=== PATIENT | female | born 1985 | race Caucasian/White ===

== ENCOUNTER 2019-11-02 11:05 | Outpatient (CLI) | payer OTHER | END 2019-11-02 11:56 | disposition home or self-care (01) | LOC: LDOP 11:05 | PROVIDERS: ATTEND Obstetrics & Gynecology | DX: O32.1XX0 Maternal care for breech presentation, not applicable or unspecified (principal); O24.913 Unspecified diabetes mellitus in pregnancy, third trimester; Z3A.37 37 weeks gestation of pregnancy | CPT/HCPCS: 59025 ==

== ENCOUNTER 2019-11-06 05:35 | Inpatient (IN) | payer OTHER ==
[~2019-11-06] VITALS: Ht 165.1 cm; Wt 83.6 kg
[2019-11-06] MEDS ORDERED: NEWBORN KIT ONE (05:46)
[2019-11-06 05:51] VITALS: BP 117/73
[2019-11-06] MEDS ORDERED: LEVO175T5 PO (05:53)
[2019-11-06] MEDS ORDERED: INSU100V14 SQ (05:55)
[2019-11-06] MEDS: METOCLOPRAMIDE 5 MG/ML, 2ML IV ONE ×2 (06:00→16:00)
[2019-11-06] MEDS ORDERED: ASPI-515 PO (06:00)
[2019-11-06] MEDS ORDERED: PREN1TAB62 PO (06:00)
[2019-11-06] MEDS ORDERED: LACTATED RINGERS 1,000 ML IVBOLUS ONE (06:00)
[2019-11-06] MEDS ORDERED: SODIUM CITRATE/CITRIC ACID 30 ML UDC PO ONE (06:00)
[2019-11-06] MEDS ORDERED: METOCLOPRAMIDE 5 MG/ML, 2ML ONE ×2 (06:07→07:51)
[2019-11-06] MEDS ORDERED: OXYTOCIN 30U/ 0.9% NaCL 500ML 500 ML ONE (06:08)
[2019-11-06 06:20] LABS: BASOPHILS # (AUTO) 0.06 x10^3/uL (0-0.1); BASOPHILS % (AUTO) 1 % (0-1); EOSINOPHILS % (AUTO) 4 % (1-7); LYMPHOCYTES # (AUTO) 1.73 x10^3/uL (1-3.4); LYMPHOCYTES % (AUTO) 17 % (22-44); MD NO; MEAN CORPUSCULAR HEMOGLOBIN 28.9 pg (27.0-34.8); MEAN CORPUSCULAR VOLUME 90.3 fL (80-100); MEAN PLATELET VOLUME 8.1 fL (7.4-10.4); MONOCYTES # (AUTO) 0.92 x10^3/uL (0.2-0.8); MONOCYTES % (AUTO) 9 % (2-9); NEUTROPHILS # (AUTO) 6.88 x10^3/uL (1.8-6.8); NEUTROPHILS % (AUTO) 69 % (42-75); PLATELET COUNT 296 x10^3/uL (130-400); RED BLOOD COUNT 4.35 x10^6/uL (3.82-5.3); RED CELL DISTRIBUTION WIDTH 13.2 % (9.6-15.2)
[2019-11-06] MEDS: INSULIN LISPRO 100 UNITS/ML, PEN SQ-INSULIN SCH ×4 (06:22→20:16)
[2019-11-06] MEDS: LACTATED RINGERS 1,000 ML IV SCH ×8 (06:44→23:52)
[2019-11-06] MEDS ORDERED: FENTANYL PF 100 MCG/2ML ONE (07:20)
[2019-11-06] MEDS ORDERED: ONDANSETRON 2MG/ML, 2ML ONE (07:20)
[2019-11-06] MEDS ORDERED: EPHEDRINE 50 MG/ML, 1ML ONE (07:20)
[2019-11-06] MEDS ORDERED: DEXAMETHASONE 4 MG/ML, 1ML ONE (07:20)
[2019-11-06] MEDS ORDERED: PHENYLEPHRINE 10 MG/ML ONE (07:20)
[2019-11-06] MEDS ORDERED: CEFAZOLIN 1,000 MG ONE (07:20)
[2019-11-06] MEDS ORDERED: KETOROLAC 30 MG/1 ML ONE (07:20)
[2019-11-06] MEDS ORDERED: OXYTOCIN 10 UNITS/ML, 1ML ONE (07:20)
[2019-11-06] MEDS ORDERED: ALBUTEROL SULFATE 2.5 MG/3 ML NPPB PRN (07:30)
[2019-11-06] MEDS ORDERED: HYDROcodone/APAP 7.5-325MG/15ML UDC PO PRN (07:30)
[2019-11-06] MEDS ORDERED: MEPERIDINE/PF 25MG/0.5ML IVPush PRN (07:30)
[2019-11-06] MEDS ORDERED: LABETALOL 5MG/ML, 20ML IV PRN (07:30)
[2019-11-06] MEDS ORDERED: MIDAZOLAM 1 MG/ML, 2ML IV PRN (07:30)
[2019-11-06] MEDS ORDERED: ONDANSETRON 2MG/ML, 2ML IVPush PRN (07:30)
[2019-11-06] MEDS ORDERED: PROMETHAZINE 25 MG/ML, 1ML IV PRN (07:30)
[2019-11-06] MEDS ORDERED: FENTANYL PF 100 MCG/2ML IV PRN (07:30)
[2019-11-06] MEDS ORDERED: hydrALAzine 20 MG/ML, 1ML IV PRN (07:30)
[2019-11-06] MEDS ORDERED: HYDROmorphone 2 MG/ML, 1ML IVPush PRN (07:30)
[2019-11-06] MEDS ORDERED: EPHEDRINE 50 MG/ML, 1ML IVPush PRN (07:30)
[2019-11-06] MEDS ORDERED: OXYcodone 5 MG/5 ML ORAL.SOL UDC PO PRN (07:30)
[2019-11-06] MEDS ORDERED: DIPH,PERTUSS(ACELL),TET VAC/PF NC IM-VACC PRN (08:00)
[2019-11-06] MEDS ORDERED: CALCIUM CARBONATE 500 MG TAB.CHEW PO PRN (08:00)
[2019-11-06] MEDS ORDERED: METOCLOPRAMIDE 5 MG/ML, 2ML IV PRN (08:00)
[2019-11-06] MEDS ORDERED: MORPHINE SULFATE 4 MG/ML, 1ML IVPush PRN (08:00)
[2019-11-06] MEDS ORDERED: METHYLERGONOVINE 0.2 MG/ML IM PRN (08:00)
[2019-11-06] MEDS ORDERED: ONDANSETRON 2MG/ML, 2ML IV PRN (08:00)
[2019-11-06] MEDS ORDERED: MISOPROSTOL 200 MCG TABLET SL PRN (08:00)
[2019-11-06] MEDS ORDERED: IBUPROFEN 800 MG TABLET PO PRN (08:00)
[2019-11-06] MEDS ORDERED: HYDROmorphone 2 MG/ML, 1ML ONE (08:26)
[2019-11-06] MEDS ORDERED: MIDAZOLAM 1 MG/ML, 2ML ONE (08:34)
[2019-11-06] MEDS: PRENATAL VIT/IRON/FA 1 EACH TABLET PO SCH (09:00)
[2019-11-06] MEDS: DOCUSATE 100 MG CAPSULE PO SCH ×2 (09:00→19:23)
[2019-11-06] MEDS ORDERED: OXYcodone 5 MG/5 ML ORAL.SOL UDC ONE (10:10)
[2019-11-06] MEDS ORDERED: OXYcodone 5 MG/5 ML ORAL.SOL UDC PO ONE (10:30)
[2019-11-06] MEDS: OXYTOCIN 30U/ 0.9% NaCL 500ML 500 ML IV SCH ×2 (10:32→17:52)
[2019-11-06 11:30] VITALS: BP 94/59
[2019-11-06] MEDS: MEPERIDINE/PF 50 MG/ML IVPush PRN ×4 (12:59→22:30)
[2019-11-06] MEDS ORDERED: MEPERIDINE/PF 100 MG/ML IVPush PRN (13:00)
[2019-11-06 15:20] VITALS: BP 106/69
[2019-11-06] MEDS: KETOROLAC 30 MG/1 ML IV SCH ×2 (15:20→21:24)
[2019-11-06 18:21] LABS: MEAN CORPUSCULAR HEMOGLOBIN 29.3 pg (27.0-34.8); MEAN CORPUSCULAR HGB CONC 31.9 g/dL (32.4-35.8); MEAN CORPUSCULAR VOLUME 91.6 fL (80-100); MEAN PLATELET VOLUME 8.6 fL (7.4-10.4); PLATELET COUNT 297 x10^3/uL (130-400); RED BLOOD COUNT 4.31 x10^6/uL (3.82-5.3); RED CELL DISTRIBUTION WIDTH 13.7 % (9.6-15.2)
[2019-11-06 18:28] LABS: BASOPHILS # (AUTO) 0.03 x10^3/uL (0-0.1); BASOPHILS % (AUTO) 0 % (0-1); EOSINOPHILS % (AUTO) 0 % (1-7); LYMPHOCYTES % (AUTO) 4 % (22-44); MD SCAN; MONOCYTES # (AUTO) 0.81 x10^3/uL (0.2-0.8); MONOCYTES % (AUTO) 4 % (2-9); NEUTROPHILS # (AUTO) 20.97 x10^3/uL (1.8-6.8); NEUTROPHILS % (AUTO) 92 % (42-75)
[2019-11-06 19:34] VITALS: BP 100/65
[2019-11-06 22:34] VITALS: BP 115/80
[2019-11-07] MEDS: MEPERIDINE/PF 50 MG/ML IVPush PRN ×4 (01:34→22:02)
[2019-11-07] MEDS: OXYTOCIN 30U/ 0.9% NaCL 500ML 500 ML IV SCH ×3 (02:59→23:52)
[2019-11-07] MEDS: KETOROLAC 30 MG/1 ML IV SCH ×4 (03:20→22:01)
[2019-11-07 04:00] VITALS: BP 108/72
[2019-11-07] MEDS: LACTATED RINGERS 1,000 ML IV SCH ×6 (04:29→23:52)
[2019-11-07] MEDS: INSULIN LISPRO 100 UNITS/ML, PEN SQ-INSULIN SCH ×4 (06:58→21:00)
[2019-11-07] MEDS: DOCUSATE 100 MG CAPSULE PO SCH ×2 (07:44→22:01)
[2019-11-07] MEDS: PRENATAL VIT/IRON/FA 1 EACH TABLET PO SCH (07:44)
[2019-11-07] MEDS: OXYcodone IR 5MG TABLET PO PRN ×3 (07:45→17:19)
[2019-11-07] MEDS: SIMETHICONE 80 MG CHEW TAB PO PRN (07:49)
[2019-11-07 07:52] VITALS: BP 97/67
[2019-11-07] MEDS: ACETAMINOPHEN 325 MG TABLET PO PRN ×2 (12:37→17:19)
[2019-11-07] MEDS ORDERED: MEPERIDINE 50 MG TABLET PO PRN (14:00)
[2019-11-07 20:00] VITALS: BP 121/79
[2019-11-08] MEDS: ACETAMINOPHEN 325 MG TABLET PO PRN ×6 (00:51→22:29)
[2019-11-08] MEDS: OXYcodone IR 5MG TABLET PO PRN ×6 (00:51→22:29)
[2019-11-08] MEDS: KETOROLAC 30 MG/1 ML IV SCH ×2 (03:54→09:56)
[2019-11-08] MEDS: LACTATED RINGERS 1,000 ML IV SCH ×2 (05:37→07:52)
[2019-11-08] MEDS: OXYTOCIN 30U/ 0.9% NaCL 500ML 500 ML IV SCH (08:46)
[2019-11-08] MEDS: INSULIN LISPRO 100 UNITS/ML, PEN SQ-INSULIN SCH ×4 (08:53→21:00)
[2019-11-08] MEDS: PRENATAL VIT/IRON/FA 1 EACH TABLET PO SCH (08:55)
[2019-11-08] MEDS: DOCUSATE 100 MG CAPSULE PO SCH ×2 (08:56→22:29)
[2019-11-08 09:20] VITALS: BP 119/76
[2019-11-08] MEDS ORDERED: KETOROLAC 30 MG/1 ML ONE (09:38)
[2019-11-08] MEDS: SIMETHICONE 80 MG CHEW TAB PO PRN ×2 (14:27→22:29)
[2019-11-08] MEDS: IBUPROFEN 200 MG TABLET PO PRN ×2 (16:29→22:29)
[2019-11-08] MEDS: ONDANSETRON ODT 4 MG PO PRN (17:53)
[2019-11-08 19:30] VITALS: BP 116/73
[2019-11-09] MEDS: OXYcodone IR 5MG TABLET PO PRN ×3 (02:28→07:45)
[2019-11-09] MEDS: ACETAMINOPHEN 325 MG TABLET PO PRN ×3 (02:28→10:24)
[2019-11-09] MEDS: ONDANSETRON ODT 4 MG PO PRN (02:56)
[2019-11-09] MEDS: SIMETHICONE 80 MG CHEW TAB PO PRN (04:32)
[2019-11-09] MEDS: IBUPROFEN 600 MG TABLET PO PRN ×4 (04:32→22:30)
[2019-11-09] MEDS: INSULIN LISPRO 100 UNITS/ML, PEN SQ-INSULIN SCH ×4 (07:00→21:00)
[2019-11-09 07:30] VITALS: BP 110/74
[2019-11-09] MEDS: DOCUSATE 100 MG CAPSULE PO SCH ×2 (07:45→19:57)
[2019-11-09] MEDS: PRENATAL VIT/IRON/FA 1 EACH TABLET PO SCH (07:46)
[2019-11-09] MEDS ORDERED: HYDROcodone/APAP 5/325 TABLET PO ONE (10:30)
[2019-11-09] MEDS: POLYETHYLENE GLYCOL 17 GM PACKET PO SCH (11:31)
[2019-11-09] MEDS: HYDROcodone/APAP 5/325 TABLET PO PRN ×3 (11:32→19:57)
[2019-11-09 19:45] VITALS: BP 117/77
[2019-11-10] MEDS: HYDROcodone/APAP 10/325 MG TABLET PO PRN ×3 (00:22→09:13)
[2019-11-10] MEDS: IBUPROFEN 600 MG TABLET PO PRN ×2 (04:26→11:33)
[2019-11-10 09:00] VITALS: BP 117/78
[2019-11-10] MEDS: POLYETHYLENE GLYCOL 17 GM PACKET PO SCH (09:12)
[2019-11-10] MEDS: PRENATAL VIT/IRON/FA 1 EACH TABLET PO SCH (09:12)
[2019-11-10] MEDS: DOCUSATE 100 MG CAPSULE PO SCH (09:12)
[2019-11-10] MEDS ORDERED: IBUP-1222 PO (09:47)
[2019-11-10] MEDS ORDERED: DOCU-131 PO (09:47)
[2019-11-10] MEDS ORDERED: HYDR-3240 PO (09:47)
[2019-11-10] MEDS: SIMETHICONE 80 MG CHEW TAB PO PRN (11:33)
[2019-11-10] MEDS: ONDANSETRON ODT 4 MG PO PRN (11:45)
[2019-11-10] MEDS: HYDROcodone/APAP 5/325 TABLET PO PRN (15:43)
== END 2019-11-10 17:12 | disposition home or self-care (01) | DRG 788 ==
LOC: LDIP 05:35 → 2NW 11:29
PROVIDERS: ADMIT Obstetrics & Gynecology; ATTEND Obstetrics & Gynecology
PROC: 10D00Z1 Extraction of Products of Conception, Low, Open Approach (ICD-10-PCS; principal; 2019-11-06)
PROC: 3E0234Z Introduction of Serum, Toxoid and Vaccine into Muscle, Percutaneous Approach (ICD-10-PCS; 2019-11-06)
DX: O34.211 Maternal care for low transverse scar from previous cesarean delivery (principal); O99.284 Endocrine, nutritional and metabolic diseases complicating childbirth; O32.1XX0 Maternal care for breech presentation, not applicable or unspecified; O36.60X0 Maternal care for excessive fetal growth, unspecified trimester, not applicable or unspecified; E03.9 Hypothyroidism, unspecified; E55.9 Vitamin D deficiency, unspecified; O24.92 Unspecified diabetes mellitus in childbirth; Z96.41 Presence of insulin pump (external) (internal); Z23 Encounter for immunization; Z83.3 Family history of diabetes mellitus; Z79.4 Long term (current) use of insulin; Z3A.37 37 weeks gestation of pregnancy; Z37.0 Single live birth
CPT/HCPCS: 36415; 82962; 85025; 86592; 86850; 86900; 87635; G0378; J0690; J1100; J1170; J1885; J2175; J2250; J2405; J3010; Q0162; J1815; J2370; J2590; J2765; J7120